=== PATIENT | female | born 1985 | race Two or more races ===

== ENCOUNTER 2022-04-04 09:11 | Outpatient (CLI) | payer OTHER | END 2022-04-04 09:18 | disposition home or self-care (01) | LOC: SONOGRAMA 09:11 | PROVIDERS: ATTEND Obstetrics & Gynecology Gynecology | DX: R10.2 Pelvic and perineal pain (principal) ==

== ENCOUNTER 2022-04-04 10:15 | Outpatient (CLI) | payer OTHER | END 2022-04-04 10:25 | disposition home or self-care (01) | LOC: LAB 10:15 | PROVIDERS: ATTEND Obstetrics & Gynecology Gynecology | DX: R53.82 Chronic fatigue, unspecified (principal); E78.5 Hyperlipidemia, unspecified; E55.9 Vitamin D deficiency, unspecified; A64 Unspecified sexually transmitted disease; N95.1 Menopausal and female climacteric states ==